=== PATIENT | male | born 1980 | race Caucasian/White ===

== ENCOUNTER 2022-05-24 14:37 | Outpatient (CLI) | payer OTHER, SELFPAY ==
--- OUTSIDE RECORDS SUMMARY | 2022-05-24 09:39 | XMS_ITS | Clinical Summary ---
:1980 Author Organization [facility] [place] [address] Care Team Providers Name Role Phone Ridge Hart MD Primary Care Provider Allergies No known active allergies Medications Medication Sig Dispensed Refills Start Date End Date Status escitalopram oxalate Take 1 Tablet 0 04/08/2021 Active (LEXAPRO) 10 mg tablet (10 mg) by mouth once daily. melatonin 3 mg tablet Take 1 Tablet (3 0 04/08/2021 Active mg) by mouth at bedtime. OLANzapine (ZYPREXA Taking 1 tablet 0 04/08/2021 Active ZYDIS) 5 mg daily as needed. disintegrating tablet multivitamins with Take 1 Tablet by 0 04/08/2021 Active minerals (Men's One mouth once Daily) tablet daily. carvediloL (Coreg) 25 Take 1 Tablet 180 Tablet 4 05/14/2021 Active mg tabletIndications: (25 mg) by mouth Primary cardiomyopathy 2 times daily. (HC) Pt states taking 2 tablets by mouth once a day. potassium chloride Take 1 Tablet 0 05/14/2021 Active (KLOR-CON M20) 20 mEq (20 mEq) by Extended-Release tablet mouth once daily with a meal. gabapentin (NEURONTIN) 0 01/01/2022 Active 300 mg capsule omeprazole (PRILOSEC) TAKE 1 CAPSULE 30 Capsule 4 02/07/2022 Active 40 mg Delayed-Release BY MOUTH ONCE capsuleIndications: DAILY Abdominal pain, epigastric, Elevated liver enzymes, Alcohol-induced acute pancreatitis, unspecified complication status, Early satiety amLODIPine (NORVASC) 5 TAKE 1 TABLET BY 90 Tablet 3 03/11/2022 Active mg tabletIndications: MOUTH EVERY DAY Primary cardiomyopathy (HC), Hypertension metFORMIN (GLUCOPHAGE) Take 2 Tablets 0 03/19/2022 Active 500 mg tablet (1,000 mg) by mouth two times daily with meals. rosuvastatin (CRESTOR) Take 1 Tablet (5 90 Tablet 3 03/19/2022 Active 5 mg tabletIndications: mg) by mouth Primary cardiomyopathy once daily. (HC), Elevated lipids, Hypertension, Type 2 diabetes mellitus without complication, without long-term current use of insulin (HC) Active Problems Problem Noted Date Calculus of kidney 02/15/2006 Encounters Date Type Specialty Care Team Description 05/05/[address] Medical Nutrition Therapy 05/05/2022 Telephone Antonio Palma MD [place] ointment Request (F/U) 03/19/2022 Telemedicine Leslie Aguirre NP Cholestero l management 03/15/2022 Orders Only Lab, [facility] 03/15/2022 Travel 03/11/2022 Orders Only Leslie Aguirre NP <No scans attached> 03/11/2022 Refill Nadeem Rodriguez, Dasia curtis Request (Amlodipine) from Last 3 Months Social History Tobacco Use Types Packs/Day Years Used Date Never Smoker Smokeless Tobacco: Never Used Tobacco Cessation: Counseling Given: Yes Comments: no passive smoke Alcohol Use Standard Drinks/Week Comments Not Currently 0 (1 standard drink = 0.6 oz pure alcoho l) Sex Assigned at Date Recorded Not on file Obstetrics History Last Filed Vital Signs Vital Sign Reading Time Taken Comments Blood Pressure 101/68 01/13/2022 2:27 PM CDT Pulse 75 01/13/2022 2:27 PM CDT Temperature 36.8 ??C (98.2 ??F) 02/15/2006 9:20 AM CDT Respiratory Rate 20 04/07/2021 3:05 PM CDT Oxygen Saturation 99% 01/13/2022 2:27 PM CDT Inhaled Oxygen Concentration - - Weight 77.1 kg (170 lb) 03/19/2022 3:11 PM CDT Height 188 cm (6' 2) 03/19/2022 3:11 PM CDT Body Mass Index 21.83 03/19/2022 3:11 PM CDT Plan of Treatment Upcoming Encounters Date Type Specialty Care Team Description 06/02/2022 Telemedicine Herrera, Sendy , RD [address] [place] [address] (Wo rk) 07/14/2022 Telemedicine Herrera Sendy , RD [address] [place] [address] (Wo rk) Health Maintenance Due Date Last Done Comments Pneumococcal series for age 19-64 1988 (1 - PCV) Tdap 1993 Depression screening for age 12+ 1994 Hepatitis C screening for age 0108/09/2000 18-79 Hepatitis B series for Diabetes (1 2001 of 3 - Risk 3-dose series) Tetanus booster 2002 COVID-19 vaccine series (4 - 11/17/2021 09/22/2021, 021, Booster for Moderna series) 08/13/2020 Influenza for age 9-49 03/18/2022 BMI (ht and wt on same day) for 03/19/2023 03/19/2022, 06/07/2021, age 18+ 06/19/2021, Additional history exists Lipids for age 35-44 03/15/2027 03/15/2022, 06/19/2021 Procedures Procedure Name Priority Date/Time Associated Diagnosis Comme nts HEMOGLOBIN A1C Routine 03/15/2022 11:19 Hyperlipidemia, Result s for this SCREENING AM CDT unspecified procedure are i n hyperlipidemia type the resu lts section. APOLIPOPROTEIN B Routine 03/15/2022 11:19 Hyperlipidemia, Resu lts for this AM CDT unspecified procedure are i n hyperlipidemia type the resu lts section. ALT (SGPT) Routine 03/15/2022 11:19 Hyperlipidemia, Results for this AM CDT unspecified procedure are i n hyperlipidemia type the resu lts section. BASIC METABOLIC PANEL Routine 03/15/2022 11:19 Hyperlipidemia, Results for this AM CDT unspecified procedure are i n hyperlipidemia type the resu lts section. VITAMIN D 25 Routine 03/15/2022 11:19 Hyperlipidemia, Results for this (DEFICIENCY) AM CDT unspecified procedure are i n hyperlipidemia type the resu lts section. CK TOTAL Routine 03/15/2022 11:19 Hyperlipidemia, Results for this AM CDT unspecified procedure are i n hyperlipidemia type the resu lts section. HIGH Routine 03/15/2022 11:19 Hyperlipidemia, Results for this [id number] AM CDT unspecified procedu re are in hyperlipidemia type the resu lts section. TSH Routine 03/15/2022 11:19 Hyperlipidemia, Results for this AM CDT unspecified procedure are i n hyperlipidemia type the resu lts section. AST (SGOT) Routine 03/15/2022 11:19 Hyperlipidemia, Results for this AM CDT unspecified procedure are i n hyperlipidemia type the resu lts section. LIPID PANEL W REFLEX Routine 03/15/2022 11:19 Hyperlipidemia, Results for this MEASURED LDL AM CDT unspecified procedure are i n hyperlipidemia type the resu lts section. LIPOPROTEIN A Routine 03/15/2022 11:19 Hyperlipidemia, Results for this AM CDT unspecified procedure are i n hyperlipidemia type the resu lts section. from Last 3 Months Results LIPOPROTEIN A (03/15/2022 11:19 AM CDT) P athologist Signature LIPOPROTEIN (A) 15.2 <75.0 03/17/2022 [facility] nmol/L 5:07 PM CDT [facility] FOR ESOTERIC TESTING (CET) Comment: Note: ??Values greater than or equal to 75.0 nmol/L may ? indicate an independent risk f actor for CHD, ? but must be evaluated with cau tion when applied ? to non- populations d ue to the ? influence of genetic factors o n Lp(a) across ? ethnicities. Specimen Anatomical Collection Method / Collection Time Recei jaci Time (Source) Location / Volume Laterality Blood BLOOD SPECIMEN / Venipuncture / 03/15/2022 11:19 03/15 Unknown Unknown AM CDT 11:20 AM CDT [facility] FOR ESOTERIC TESTING (CET) - 03/17/2022 5:07 PM CDT Performed at: ??01 - [address] ??[id number] Test Engineering Manager: Lea Wood MD, Phone: ??[phone] Leslie Aguirre OUTDOOR EMERGENCY CARE TECHNICIAN SEND OUTS Performing Organization Address City/State/ZIP Code Phon e Number [facility] [address] [place], [place] [address] ESOTERIC TESTING (CET) (ABNORMAL) APOLIPOPROTEIN B (03/15/2022 11:19 AM CDT) [facility] Method Time Signature Apolipoprotein B 94 (H) <90 mg/dL 03/17/2022 [facility] 8:09 AM CDT [facility] FOR ESOTERIC TESTING (CET) Comment: ? Luisito irable ? < 90 ? Bor derline High ? 90 - ??99 ? Hig h ? 100 - 130 ? Anjelica y High ? >130 ?ASCVD RISK ?THERAPEUTIC TARGET ? CATEGORY ?APO B (mg/dL) ?Very High Risk ?<8 0 (if extreme risk <70) ?High Risk ? <90 ?Moderate Risk ? <9 0 Specimen Anatomical Collection Method / Collection Time Recei jaci Time (Source) Location / Volume Laterality Blood BLOOD SPECIMEN / Venipuncture / 03/15/2022 11:19 03/15 Unknown Unknown AM CDT 11:20 AM CDT [facility] FOR ESOTERIC TESTING (CET) - 03/17/2022 8:09 AM CDT Performed at: ??[address] ??[id number] Test Engineering Manager: Sebastian Canales MD, Phone: ?? [phone] Leslie Aguirre NP SEND OUTS Performing Organization Address City/State/ZIP Code Phon e Number [address] [address] ESOTERIC TESTING (CET) (ABNORMAL) HEMOGLOBIN A1C SCREENING (03/15/2022 11:19 AM CDT) Analysis Performed At Patho logist Time Signature HEMOGLOBIN A1C 8.2 (H) <=6.4 % 03/16/2022 [facility] [employer] SCREENING 9:00 AM CDT [facility] Specimen Anatomical Collection Method / Collection Time Recei jaci Time (Source) Location / Volume Laterality Blood BLOOD SPECIMEN / Venipuncture / 03/15/2022 11:19 03/15 Unknown Unknown AM CDT 11:20 AM CDT Narrative [facility] LABORATORY-CENTRAL LABORAT ORY - 03/16/2022 9:00 AM CDT ? (<5.7%) ?Normal ? (5.7% to 6.4%) ? Indicates pr ediabetes ? (>=6.5%) ? Confirms diabetes Falsely low levels may be seen with: Recent Transfusion, Recent Significant B lood Loss, Hemolytic Diseases, or Falsely elevated levels may be seen with : Untreated Anemias, Splenectomy Leslie Aguirre NP CHEMISTRY Performing Organization Address City/State/ZIP Code Phon e Number [facility] [address] [place] [address] LABORATORY-CENTRAL 2000 LABORATORY (ABNORMAL) LIPID PANEL W REFLEX MEASURED LDL (03/15/2022 11:19 AM CDT) [facility] gist Method Time Signature CHOLESTEROL,TOTAL 199 100 - 199 03/15/2022 [facility] mg/dL 5:43 PM CDT [facility] TRIGLYCERIDES 110 <150 03/15/2022 [facility] mg/dL 5:43 PM CDT [facility] HDL CHOLESTEROL 47 >40 mg/dL 03/15/2022 [facility] 5:43 PM CDT [facility] NON-HDL 152 (H) <145 03/15/2022 [facility] CHOLESTEROL mg/dl 5:43 PM CDT [facility] CHOL/HDL RATIO 4.23 <4.50 03/15/2022 [facility] 5:43 PM CDT [facility] LDL CHOLESTEROL 130 <=130 03/15/2022 [facility] mg/dL 5:43 PM CDT [facility] VLDL CHOLESTEROL 22 <=30 03/15/2022 [facility] mg/dL 5:43 PM CDT [facility] PROVIDER ORDERED FASTING 03/15/2022 [facility] STATUS 5:43 PM CDT [facility] Specimen Anatomical Collection Method / Collection Time Recei jaci Time (Source) Location / Volume Laterality Blood BLOOD SPECIMEN / Venipuncture / 03/15/2022 11:19 03/15 Unknown Unknown AM CDT 11:20 AM CDT Leslie Aguirre NP CHEMISTRY Performing Organization Address City/State/ZIP Code Phon e Number [facility] [address] [place], [place] [address] [place] [address] LABORATORY-CENTRAL 2000 LABORATORY VITAMIN D 25 (DEFICIENCY) (03/15/2022 11:19 AM CDT) athologist Signature VITAMIN D 31.4 30.0 - 03/15/2022 [facility] TOTAL 80.0 ng/mL 5:53 PM CDT LABORATORY-[facility] LABORATORY Specimen Anatomical Collection Method / Collection Time Recei jaci Time (Source) Location / Volume Laterality Blood BLOOD SPECIMEN / Venipuncture / 03/15/2022 11:19 03/15 Unknown Unknown AM CDT 11:20 AM CDT Narrative [facility] LABORATORY-CENTRAL LABORAT ORY - 03/15/2022 5:53 PM CDT Deficiency: ? <20 ng/mL Insufficiency: ?20-29 ng/mL Sufficiency: ?30-80 ng/mL Possible Toxicity: ??>80 ng/mL Based on [place] [facility] recommend ations Leslie Aguirre NP SEND OUTS Performing Organization Address [facility] e Number [facility] [address] [place] [address] LABORATORY-CENTRAL [facility] LABORATORY TSH (03/15/2022 11:19 AM CDT) P athologist Signature TSH 2.95 0.35 - 4.94 03/15/2022 [facility] uIU/mL 5:53 PM CDT LABORATORY-CENTR AL LABORATORY Specimen Anatomical Collection Method / Collection Time Recei jaci Time (Source) Location / Volume Laterality Blood BLOOD SPECIMEN / Venipuncture / 03/15/2022 11:19 03/15 Unknown Unknown AM CDT 11:20 AM CDT Narrative [facility] - 03/15/2022 5:53 PM CDT In Adults, TSH values between 5.00 and 10.00 uIU/ml do not necessarily indicate the presence of Hyp othyroidism. Correlation with clinical findings such as presence of goiter and/or Thyroperoxidase (TPO) Antibody ma y be helpful. For more information please refer to RHEA 20 04; 291: 228-238. Leslie Aguirre NP CHEMISTRY Performing Organization Address [facility] e Number [facility] [address] [place] [address] LABORATORY-CENTRAL [facility] LABORATORY HIGH [id number] (03/15/2022 11:19 AM CDT) athologist Signature HS CRP 1.05 mg/L 03/15/2022 [facility] 5:40 PM CDT LABORATORY-CENTR AL LABORATORY Specimen Anatomical Collection Method / Collection Time Recei jaci Time (Source) Location / Volume Laterality Blood BLOOD SPECIMEN / Venipuncture / 03/15/2022 11:19 03/15 Unknown Unknown AM CDT 11:20 AM CDT Narrative [facility] - 03/15/2022 5:40 PM CDT Current literature indicates a result of 1.00-3.00 mg/L is associated with moderate risk of cardiov ascular disease. Leslie Aguirre NP CHEMISTRY Performing Organization Address City/State/ZIP Code Phon e Number [facility] [address] [place] [address] [place] [address] LABORATORY-CENTRAL 2000 LABORATORY ALT (SGPT) (03/15/2022 11:19 AM CDT) athologist Signature ALT (SGPT) 33 8 - 45 IU/L 03/15/2022 [facility] 5:43 PM CDT LABORATORY-[facility]ENT RAL LABORATORY Specimen Anatomical Collection Method / Collection Time Recei jaci Time (Source) Location / Volume Laterality Blood BLOOD SPECIMEN / Venipuncture / 03/15/2022 11:19 03/15 Unknown Unknown AM CDT 11:20 AM CDT Leslie Aguirre NP CHEMISTRY Performing Organization Address City/[facility]/ZIP Code Phon e Number [facility] [address] [place] [address] LABORATORY-CENTRAL 2000 LABORATORY AST (SGOT) (03/15/2022 11:19 AM CDT) athologist Signature AST (SGOT) 27 2 - 40 IU/L 03/15/2022 [facility] 5:42 PM CDT LABORATORY-CENT RAL LABORATORY Specimen Anatomical Collection Method / Collection Time Recei jaci Time (Source) Location / Volume Laterality Blood BLOOD SPECIMEN / Venipuncture / 03/15/2022 11:19 03/15 Unknown Unknown AM CDT 11:20 AM CDT Leslie Aguirre NP CHEMISTRY Performing Organization Address City/State/ZIP Code Phon e Number [facility] [address] [place] [address] [place] [address] LABORATORY-CENTRAL 2000 LABORATORY CK TOTAL (03/15/2022 11:19 AM CDT) athologist Signature CK,TOTAL 68 30 - 200 03/15/2022 [facility] IU/L 5:43 PM CDT LABORATORY-CENTR AL LABORATORY Specimen Anatomical Collection Method / Collection Time Recei jaci Time (Source) Location / Volume Laterality Blood BLOOD SPECIMEN / Venipuncture / 03/15/2022 11:19 03/15 Unknown Unknown AM CDT 11:20 AM CDT Leslie Aguirre NP CHEMISTRY Performing Organization Address City/State/ZIP Code Phon e Number [facility] [address] [place] [address] LABORATORY-CENTRAL 2000 LABORATORY (ABNORMAL) BASIC METABOLIC PANEL (03/15/2022 11:19 AM CDT) [facility] Signature SODIUM 136 135 - 145 03/15/2022 [facility] mmol/L 5:41 PM CDT [facility] POTASSIUM 4.7 3.5 - 5.0 03/15/2022 [facility] mmol/L 5:41 PM CDT [facility] CHLORIDE 101 98 - 110 03/15/2022 [facility] mmol/L 5:41 PM CDT [facility] CO2,TOTAL 25 21 - 31 03/15/2022 [facility] mmol/L 5:41 PM CDT [facility] ANION GAP 10 5 - 18 03/15/2022 [facility] 5:41 PM CDT [facility] GLUCOSE 232 (H) 65 - 100 03/15/2022 [facility] mg/dL 5:41 PM CDT [facility] CALCIUM 9.9 8.5 - 10.5 03/15/2022 [facility] mg/dL 5:41 PM CDT [facility] BUN 17 8 - 25 03/15/2022 [facility] mg/dL 5:41 PM CDT [facility] CREATININE 1.00 0.72 - 03/15/2022 [facility] 1.25 mg/dL 5:41 PM CDT [facility] BUN/CREAT RATIO 17 10 - 20 03/15/2022 [facility] 5:41 PM CDT [facility] eGFR >90 >90 03/15/2022 [facility] mL/min/1.7 5:41 PM CDT [facility] 3m2 TRAL LABORATORY Comment: As of 2021, eGFR is calcu lated by the CKD-EPI creatinine equation without race adjustment. eGFR can be inf luenced by muscle mass, exercise, and diet. The reported eGFR is an estimation only and is only applicable if the renal function is stable. Specimen Anatomical Collection Method / Collection Time Recei jaci Time (Source) Location / Volume Laterality Blood BLOOD SPECIMEN / Venipuncture / 03/15/2022 11:19 03/15 Unknown Unknown AM CDT 11:20 AM CDT Leslie Aguirre NP CHEMISTRY Performing Organization Address City/State/ZIP Code Phon e Number [facility] [address] [place] [address] LABORATORY-CENTRAL 2000 LABORATORY from Last 3 Months Insurance Payer Benefit Plan / Subscriber ID Effective Dates Phone Addre ss Type Group MEDICA MEDICA CHOICE [id number] 2021-Present [address] [address] [place] [address] [phone] (Work) Advance Directives Documents on File Type Date Recorded Patient Library Acquisitions Technician Explanati on Healthcare Directive 04/08/2021 04/08/2021 Care Teams Nursing Home Physician Relationship Specialty Start Date End Date Ridge Hart MD PCP - General Family Practice 03/16/211999 [place] [phone]
[2022-05-24 10:55] LABS: Creatinine Urine 172.8 mg/dL
[2022-05-24 11:00] LABS: Microalbumin Creatinine Ratio 10 mg/g (0-30); Microalbumin Urine 3 mg/dL
[2022-05-24 11:32] LABS: Albumin* 4.5 g/dL (3.3-5.0); Chloride* 100 mmol/L (96-114); Sodium* 138 mmol/L (135-149)
[2022-05-24 11:33] LABS: Potassium* 4.7 mmol/L (3.6-5.1)
[2022-05-24 11:35] LABS: Alanine Aminotransferase* 53 U/L (4-50); Alkaline Phosphatase* 91 U/L (40-150); Aspartate Amino Transferase* 31 U/L (12-35); Bilirubin Total* 0.7 mg/dL (0.1-1.5); Blood Urea Nitrogen* 15 mg/dL (5-24); Carbon Dioxide* 29 mmol/L (20-32); Creatinine* 0.8 mg/dL (0.5-1.5); Estimated Glomerular Filt Rate 115 ml/min; Glucose* 167 mg/dL (60-115); Total Protein* 7.3 g/dL (6.0-8.3)
[2022-05-24 11:36] LABS: Calcium* 9.8 mg/dL (8.4-10.6)
[2022-05-26 11:13] LABS: Cholesterol* 101 mg/dL (90-199); HDL Cholesterol* 39 mg/dL (>=40); LDL Cholesterol Calculated 41 mg/dL (<100); Triglycerides* 104 mg/dL (40-149)
== END 2022-05-24 14:38 | disposition home or self-care (01) ==
PROVIDERS: PCP Family Medicine; Visit Provider Family Medicine
DX: Z00.00 Encounter for general adult medical examination without abnormal findings (principal); E11.9 Type 2 diabetes mellitus without complications; R68.82 Decreased libido; E78.5 Hyperlipidemia, unspecified; E87.6 Hypokalemia; F41.9 Anxiety disorder, unspecified; I42.9 Cardiomyopathy, unspecified
CPT/HCPCS: 80053; 80061; 82043; 82570

== ENCOUNTER 2023-05-23 08:15 | Outpatient (CLI) | payer OTHER, SELFPAY | END 2023-05-23 08:16 | disposition home or self-care (01) | LOC: NFLDREF 05-25 10:02 | PROVIDERS: PCP Family Medicine; Referring Provider Family Medicine; Visit Provider Family Medicine | DX: Z00.00 Encounter for general adult medical examination without abnormal findings (principal); E11.9 Type 2 diabetes mellitus without complications; R63.4 Abnormal weight loss; R80.9 Proteinuria, unspecified; I10 Essential (primary) hypertension; E78.5 Hyperlipidemia, unspecified; E87.6 Hypokalemia; E83.52 Hypercalcemia; R74.8 Abnormal levels of other serum enzymes; R77.9 Abnormality of plasma protein, unspecified; R79.89 Other specified abnormal findings of blood chemistry; D64.9 Anemia, unspecified | CPT/HCPCS: 80053; 80061; 82043; 82570 ==

== ENCOUNTER 2024-05-30 08:21 | Outpatient (CLI) | payer BC, SELFPAY ==
--- OUTSIDE RECORDS SUMMARY | 2024-06-03 09:49 | XMS_ITS | Clinical Summary ---
Author Organization [facility] Address [place], [place] [address] Care Team Providers Care Audio Video Tech Name Role Phone Ridge Hart MD Primary Care Provider [phone] Allergies No known active allergies Medications Medication Sig Dispensed Refills Start Date End Date Status escitalopram oxalate (LEXAPRO) 10 mg tablet Take 1 Tablet (10 mg) by mouth once daily. 0 04/08/2021 Active melatonin 3 mg tablet Take 1 Tablet (3 mg) by mouth at bedtime. 0 04/08/2021 Active multivitamins with minerals (Men's One Daily) tablet Take 1 Tablet by mouth once daily. 0 04/08/2021 Active potassium chloride (KLOR-CON M20) 20 mEq Extended-Release tablet Take 1 Tablet (20 mEq) by mouth once daily with a meal. 0 05/14/2021 Active omeprazole (PRILOSEC) 40 mg Delayed-Release capsuleIndications:Ab dominal pain, epigastric,Elevated liver enzymes,Alcohol-induc ed acute pancreatitis, unspecified complication status,Early satiety TAKE 1 CAPSULE BY MOUTH ONCE DAILY 30 Capsule 4 02/07/2022 Active rosuvastatin (CRESTOR) 5 mg tabletIndications:Jessica weston cardiomyopathy (HC),Elevated lipids,Hypertension,T ype 2 diabetes mellitus without complication, without long-term current use of insulin (HC) Take 1 Tablet (5 mg) by mouth once daily. 90 Tablet 3 03/19/2022 Active glipiZIDE extended-release (GLUCOTROL XL) 10 mg Extended-Release tablet Take 10 mg by mouth once daily. 08/24/2022 Active OLANzapine (ZYPREXA ZYDIS) 5 mg disintegrating tablet Taking 1 tablet daily as needed. 09/12/23 currently not taking/ 09/12/2023 Active carvediloL (Coreg) 25 mg tabletIndications:Jessica weston cardiomyopathy (HC) Take 1 Tablet (25 mg) by mouth two times daily. 180 Tablet 4 09/13/2023 Active Active Problems Problem Noted Date Diagnosed Date Calculus of kidney 02/15/2006 Social History Tobacco Use Types Packs/Day Years Used Date Smoking Tobacco: Never Smokeless Tobacco: Never Tobacco Cessation:Counseling Given: Yes Comments:no passive smoke Alcohol Use Standard Drinks/Week Comments Not Currently 0 (1 standard drink = 0.6 oz pur e alcohol) Social Connections Answer Date Recorded Frequency of Communication with Friends and Fami ly Not on file 07/08/2021 Financial Resource Strain Answer Date R ecorded Difficulty of Paying Living Expenses Not on file 07/08/2021 Difficulty of Paying Living Expenses Not on file 07/08/2021 Sex and Gender Information Value Date Recorded Sex Assigned at Not on file Gender Identity Not on file Sexual Orientation Not on file Obstetrics History Last Filed Vital Signs Vital Sign Reading Time Taken Comments Blood Pressure 98/70 09/01/2022 11:22 AM WATER PIPE INSTALLER Pulse 82 09/01/2022 11:22 AM WATER PIPE INSTALLER Temperature 36.8 ??C (98.2 ??F) 02/15/2006 9:20 AM CD T Respiratory Rate 20 04/07/2021 3:05 PM CDT Oxygen Saturation 99% 09/01/2022 11:22 AM WATER PIPE INSTALLER Inhaled Oxygen Concentration - - Weight 84.8 kg (187 lb) 09/12/2023 8:54 AM WATER PIPE INSTALLER Height 188 cm (6' 2) 09/12/2023 8:54 AM WATER PIPE INSTALLER Body Mass Index 24.01 09/12/2023 8:54 AM WATER PIPE INSTALLER Plan of Treatment Health Maintenance Due Date Last Done Comments Pneumococcal series for age 6-64 (1 of 2 - PCV) 1988 Tdap 1993 Depression screening for age 12+ 1994 HIV for age 15-65 1997 Hepatitis C screening for ag e 18-79 2000 Tetanus booster 2002 COVID-19 vaccine series ( season) 2024 05/26/2023, 09/22/2021, 09/10/2020, Additional history exists Influenza for age 9-49 03/18/2024 BMI (ht and wt on same day) for age 18+ 09/12/2024 09/12/2023, 09/01/2022, 03/19/2022, Additional history exists Lipids for age 35-44 08/26/2027 08/26/2022, 03/15/2022, 06/19/2021 Procedures Procedure Name Priority Date/Time Associated Diagnosis Comments LIPID PANEL Today 08/26/2022 10:03 AM WATER PIPE INSTALLER Primary cardiomyopathy (HC) Elevated lipids Hypertension Type 2 diabetes mellitus without complication, without long-term current use of insulin (HC) from Last 3 Months or Most Recently Relevant to Health Maintenance Results * (ABNORMAL) LIPID PANEL (08/26/2022 10:03 AM [facility]) CHOLESTEROL,TOTAL 114 mg/dL 023 10:41 AM [facility] TRAL LABORATORY Comment: Cholesterol, Total Reference Ranges Desirable <200 mg/dL Borderline 200-239 mg/dL High >=240 mg/dL TRIGLYCERIDES 138 <150 mg/dL 08/26/2022 10:41 AM [facility] TRAL LABORATORY HDL CHOLESTEROL 37(L) >40 mg/dL 10:41 AM [facility] TRAL LABORATORY NON-HDL CHOLESTEROL 77 <145 mg/dl 08/26/2022 10:41 AM [facility] TRAL LABORATORY CHOL/HDL RATIO 3.08 <4.50 08/26/2022 10:41 AM [facility] TRAL LABORATORY LDL CHOLESTEROL 49 <=130 mg/dL 08/26/2022 10:41 AM [facility] TRAL LABORATORY VLDL CHOLESTEROL 28(L) >30 mg/dL 08/26/19 10:41 AM [facility] TRAL LABORATORY PROVIDER ORDERED STATUS RANDOM 08/26/2022 10:41 AM [facility] TRAL LABORATORY Blood BLOOD SPECIMEN / Unknown Venipuncture / Unknown 08/26/2022 10:03 AM WATER PIPE INSTALLER 08/26/2022 10:07 AM WATER PIPE INSTALLER Leslie Aguirre DROP HAMMER SETTER UP CHEMISTRY [facility]-CENTRAL LABORATORY [address] [place] [address], from Last 3 Months or Most Recently Relevant to Health Maintenance Advance Directives Documents on File Type Date Recorded Patient Car Rental Deliverer Expl anation Healthcare Directive 04/08/2021 021 Care Teams Audio Video Tech Relationship Specialty Start Date End Date Ridge Hart MD [address] [place] [id number] PCP - General Family Practice 03/16/21
== END 2024-05-30 08:22 | disposition home or self-care (01) ==
LOC: NFLDREF 06-03 09:47
PROVIDERS: PCP Family Medicine; Referring Provider Family Medicine; Visit Provider Family Medicine
DX: Z00.00 Encounter for general adult medical examination without abnormal findings (principal); E11.40 Type 2 diabetes mellitus with diabetic neuropathy, unspecified; F41.9 Anxiety disorder, unspecified; F32.A Depression, unspecified; E78.5 Hyperlipidemia, unspecified; I10 Essential (primary) hypertension; E87.6 Hypokalemia
CPT/HCPCS: 80053; 80061; 82043; 82570

== ENCOUNTER 2024-08-13 13:47 | Outpatient (CLI) | payer BC, SELFPAY | END 2024-08-13 13:48 | disposition home or self-care (01) | LOC: RAD 13:49 | PROVIDERS: PCP Family Medicine; Visit Provider Internal Medicine | DX: I42.8 Other cardiomyopathies (principal); I34.0 Nonrheumatic mitral (valve) insufficiency | CPT/HCPCS: 93306 ==

== ENCOUNTER 2024-12-11 08:06 | Outpatient (CLI) | payer BC, SELFPAY | END 2024-12-11 08:07 | disposition home or self-care (01) | LOC: NFLDREF 12-13 15:46 | PROVIDERS: PCP Family Medicine; Referring Provider Family Medicine; Visit Provider Family Medicine | DX: E11.65 Type 2 diabetes mellitus with hyperglycemia (principal) | CPT/HCPCS: 36415 ==

== ENCOUNTER 2025-06-12 08:38 | Outpatient (CLI) | payer BC, SELFPAY | END 2025-06-12 08:39 | disposition home or self-care (01) | LOC: NFLDREF 06-18 09:31 | PROVIDERS: PCP Family Medicine; Referring Provider Family Medicine; Visit Provider Family Medicine | DX: Z00.00 Encounter for general adult medical examination without abnormal findings (principal); E11.9 Type 2 diabetes mellitus without complications; I10 Essential (primary) hypertension; E78.5 Hyperlipidemia, unspecified | CPT/HCPCS: 80053; 80061; 82043; 82570 ==